=== PATIENT | female | born 1950 | race Caucasian/White ===

== ENCOUNTER 2017-11-09 12:12 | Outpatient (CLI) | payer MEDICARE, OTHER, SELFPAY ==
[2017-11-09 12:37] LABS: Abs Immature Grans 0.01 k/cumm (0.0-0.09); Absolute Basophil Count 0.02 k/cumm (0.0-0.2); Absolute Lymphocyte Count 0.92 k/cumm (1.2-3.4); Absolute Monocyte Count 0.91 k/cumm (0.11-0.7); Absolute Neutrophil Count 2.51 k/cumm (1.2-6.7); Basophils % 0.4; Eosinophils % 6.4; HCT 35.6 % (36.0-46.0); HGB 11.5 g/dL (12.0-15.5); Immature Grans % 0.2; Lymphocytes % 19.7; Mean Corp. HGB Concentration 32.3 g/dL (32.0-36.0); Mean Corpuscular Hemoglobin 29.6 pg (27.0-33.0); Mean Corpuscular Volume 91.8 fL (80-95); Mean Platelet Volume 12.6 fL (8.0-11.0); Monocytes % 19.5; Neutrophils % 53.8; RBC 3.88 m/cumm (4.00-5.20); RBC Distribution Width 15.2 % (11.7-14.6); White Blood Cell Count 4.67 k/cumm (4.4-10.8)
[2017-11-09 12:49] LABS: ALT 17 U/L (12-78); AST 12 U/L (15-37); Albumin 2.7 g/dL (3.4-5.0); Alkaline Phosphatase 53 U/L (46-116); Anion Gap 7.7 mmol/L (3-11); BUN 13 mg/dL (7-18); Bilirubin, Total 0.5 mg/dL (0.2-1.0); CO2 26.3 mmol/L (21.0-32.0); CREATININE 0.72 mg/dL (0.55-1.02); Calcium 8.3 mg/dL (8.5-10.1); Chloride 103 mmol/L (98-107); Glucose 92 mg/dL (70-100); Potassium 3.9 mmol/L (3.5-5.1); Sodium 137 mmol/L (136-145); Total Protein 8.3 g/dL (6.4-8.2)
[2017-11-09 13:10] LABS: Platelet Count 86 x1000/uL (130-400)
== END 2017-11-09 12:13 ==
PROVIDERS: PCP Nurse Practitioner Family; Visit Provider Internal Medicine
DX: C90.00 Multiple myeloma not having achieved remission (principal)
CPT/HCPCS: 36415; 80053; 85025

== ENCOUNTER 2017-11-16 12:22 | Outpatient (CLI) | payer MEDICARE, OTHER, SELFPAY ==
[2017-11-16 12:44] LABS: Abs Immature Grans 0.03 k/cumm (0.0-0.09); Absolute Basophil Count 0.05 k/cumm (0.0-0.2); Absolute Eosinophil Count 0.36 k/cumm (0.0-0.7); Absolute Lymphocyte Count 0.85 k/cumm (1.2-3.4); Absolute Neutrophil Count 3.33 k/cumm (1.2-6.7); Basophils % 0.9; Eosinophils % 6.4; HCT 36.5 % (36.0-46.0); Immature Grans % 0.5; Lymphocytes % 15.1; Mean Corp. HGB Concentration 32.9 g/dL (32.0-36.0); Mean Corpuscular Hemoglobin 29.9 pg (27.0-33.0); Mean Corpuscular Volume 90.8 fL (80-95); Mean Platelet Volume 12.1 fL (8.0-11.0); Monocytes % 17.8; Neutrophils % 59.3; Platelet Count 121 x1000/uL (130-400); RBC 4.02 m/cumm (4.00-5.20); RBC Distribution Width 15.6 % (11.7-14.6); White Blood Cell Count 5.62 k/cumm (4.4-10.8)
[2017-11-16 13:00] LABS: ALT 13 U/L (12-78); AST 10 U/L (15-37); Alkaline Phosphatase 44 U/L (46-116); Anion Gap 9.3 mmol/L (3-11); BUN 16 mg/dL (7-18); Bilirubin, Total 0.7 mg/dL (0.2-1.0); CO2 22.7 mmol/L (21.0-32.0); CREATININE 0.67 mg/dL (0.55-1.02); Calcium 8.7 mg/dL (8.5-10.1); Chloride 105 mmol/L (98-107); Glucose 89 mg/dL (70-100); Potassium 3.9 mmol/L (3.5-5.1); Sodium 137 mmol/L (136-145); Total Protein 8.4 g/dL (6.4-8.2)
== END 2017-11-16 12:23 ==
PROVIDERS: PCP Nurse Practitioner Family; Visit Provider Internal Medicine
DX: C90.00 Multiple myeloma not having achieved remission (principal)
CPT/HCPCS: 36415; 80053; 85025

== ENCOUNTER 2017-12-07 05:28 | Outpatient (CLI) | payer MEDICARE, OTHER, SELFPAY ==
[2017-12-07 14:12] LABS: Abs Immature Grans 0.01 k/cumm (0.0-0.09); Absolute Basophil Count 0.04 k/cumm (0.0-0.2); Absolute Eosinophil Count 0.59 k/cumm (0.0-0.7); Absolute Lymphocyte Count 0.84 k/cumm (1.2-3.4); Absolute Monocyte Count 1.29 k/cumm (0.11-0.7); Absolute Neutrophil Count 3.27 k/cumm (1.2-6.7); Basophils % 0.7; Eosinophils % 9.8; HCT 37.8 % (36.0-46.0); HGB 11.9 g/dL (12.0-15.5); Immature Grans % 0.2; Lymphocytes % 13.9; Mean Corp. HGB Concentration 31.5 g/dL (32.0-36.0); Mean Corpuscular Hemoglobin 29.5 pg (27.0-33.0); Mean Corpuscular Volume 93.6 fL (80-95); Mean Platelet Volume 11.3 fL (8.0-11.0); Monocytes % 21.4; RBC 4.04 m/cumm (4.00-5.20); RBC Distribution Width 14.8 % (11.7-14.6); White Blood Cell Count 6.04 k/cumm (4.4-10.8)
[2017-12-07 14:31] LABS: Diff Comment PLT Morph Reviewed; Platelet Count 88 x1000/uL (130-400); Polychromasia Present
[2017-12-07 14:47] LABS: ALT 17 U/L (12-78); AST 13 U/L (15-37); Albumin 2.9 g/dL (3.4-5.0); Alkaline Phosphatase 52 U/L (46-116); BUN 13 mg/dL (7-18); Bilirubin, Total 0.6 mg/dL (0.2-1.0); CREATININE 0.75 mg/dL (0.55-1.02); Calcium 8.7 mg/dL (8.5-10.1); Chloride 105 mmol/L (98-107); Glucose 90 mg/dL (70-100); Potassium 3.5 mmol/L (3.5-5.1); Sodium 136 mmol/L (136-145); Total Protein 7.9 g/dL (6.4-8.2)
== END 2017-12-07 05:48 ==
PROVIDERS: PCP Nurse Practitioner Family; Visit Provider Internal Medicine
DX: C90.00 Multiple myeloma not having achieved remission (principal)
CPT/HCPCS: 36415; 80053; 85025

== ENCOUNTER 2017-12-14 13:54 | Outpatient (CLI) | payer MEDICARE, OTHER, SELFPAY ==
[2017-12-14 14:23] LABS: Abs Immature Grans 0.04 k/cumm (0.0-0.09); Absolute Basophil Count 0.03 k/cumm (0.0-0.2); Absolute Eosinophil Count 0.56 k/cumm (0.0-0.7); Absolute Lymphocyte Count 0.75 k/cumm (1.2-3.4); Absolute Monocyte Count 1.09 k/cumm (0.11-0.7); Absolute Neutrophil Count 3.53 k/cumm (1.2-6.7); Basophils % 0.5; Eosinophils % 9.3; HCT 36.3 % (36.0-46.0); HGB 11.4 g/dL (12.0-15.5); Immature Grans % 0.7; Lymphocytes % 12.5; Mean Corp. HGB Concentration 31.4 g/dL (32.0-36.0); Mean Corpuscular Hemoglobin 29.5 pg (27.0-33.0); Mean Platelet Volume 11.8 fL (8.0-11.0); Monocytes % 18.2; Neutrophils % 58.8; Platelet Count 117 x1000/uL (130-400); RBC 3.86 m/cumm (4.00-5.20); RBC Distribution Width 15.1 % (11.7-14.6)
[2017-12-14 15:01] LABS: ALT 19 U/L (12-78); AST 15 U/L (15-37); Albumin 2.8 g/dL (3.4-5.0); Alkaline Phosphatase 66 U/L (46-116); Anion Gap 4.7 mmol/L (3-11); BUN 13 mg/dL (7-18); Bilirubin, Total 0.6 mg/dL (0.2-1.0); CO2 27.3 mmol/L (21.0-32.0); CREATININE 0.71 mg/dL (0.55-1.02); Calcium 8.1 mg/dL (8.5-10.1); Chloride 106 mmol/L (98-107); Glucose 98 mg/dL (70-100); Potassium 3.9 mmol/L (3.5-5.1); Sodium 138 mmol/L (136-145)
== END 2017-12-14 14:14 ==
PROVIDERS: PCP Nurse Practitioner Family; Visit Provider Internal Medicine
DX: C90.00 Multiple myeloma not having achieved remission (principal)
CPT/HCPCS: 36415; 80053; 85025

== ENCOUNTER 2018-01-04 12:42 | Outpatient (CLI) | payer MEDICARE, OTHER, SELFPAY ==
[2018-01-04 13:04] LABS: Abs Immature Grans 0.02 k/cumm (0.0-0.09); Absolute Basophil Count 0.05 k/cumm (0.0-0.2); Absolute Eosinophil Count 0.38 k/cumm (0.0-0.7); Absolute Lymphocyte Count 0.82 k/cumm (1.2-3.4); Absolute Monocyte Count 0.92 k/cumm (0.11-0.7); Basophils % 1.1; Eosinophils % 8.3; HCT 37.3 % (36.0-46.0); HGB 11.9 g/dL (12.0-15.5); Immature Grans % 0.4; Lymphocytes % 17.9; Mean Corp. HGB Concentration 31.9 g/dL (32.0-36.0); Mean Corpuscular Hemoglobin 30.1 pg (27.0-33.0); Mean Corpuscular Volume 94.4 fL (80-95); Mean Platelet Volume 12.7 fL (8.0-11.0); Neutrophils % 52.3; RBC 3.95 m/cumm (4.00-5.20); RBC Distribution Width 15.5 % (11.7-14.6); White Blood Cell Count 4.59 k/cumm (4.4-10.8)
[2018-01-04 13:24] LABS: ALT 17 U/L (12-78); AST 13 U/L (15-37); Albumin 2.9 g/dL (3.4-5.0); Alkaline Phosphatase 47 U/L (46-116); Anion Gap 6.1 mmol/L (3-11); BUN 18 mg/dL (7-18); Bilirubin, Total 0.8 mg/dL (0.2-1.0); CO2 25.9 mmol/L (21.0-32.0); CREATININE 0.61 mg/dL (0.55-1.02); Calcium 8.4 mg/dL (8.5-10.1); Chloride 107 mmol/L (98-107); Glucose 92 mg/dL (70-100); Potassium 3.9 mmol/L (3.5-5.1); Sodium 139 mmol/L (136-145); Total Protein 7.3 g/dL (6.4-8.2)
[2018-01-04 13:34] LABS: Diff Comment PLT Morph Reviewed; Platelet Count 79 x1000/uL (130-400); RBC Morphology Normal
== END 2018-01-04 13:02 ==
PROVIDERS: PCP Nurse Practitioner Family; Visit Provider Internal Medicine
DX: C90.00 Multiple myeloma not having achieved remission (principal)
CPT/HCPCS: 36415; 80053; 85025

== ENCOUNTER 2018-01-11 12:45 | Outpatient (CLI) | payer MEDICARE, OTHER, SELFPAY ==
[2018-01-11 13:06] LABS: Abs Immature Grans 0.03 k/cumm (0.0-0.09); Absolute Basophil Count 0.03 k/cumm (0.0-0.2); Absolute Lymphocyte Count 0.84 k/cumm (1.2-3.4); Absolute Monocyte Count 1.01 k/cumm (0.11-0.7); Absolute Neutrophil Count 4.85 k/cumm (1.2-6.7); Basophils % 0.4; Eosinophils % 5.6; HCT 38.2 % (36.0-46.0); HGB 12.1 g/dL (12.0-15.5); Immature Grans % 0.4; Lymphocytes % 11.7; Mean Corp. HGB Concentration 31.7 g/dL (32.0-36.0); Mean Corpuscular Hemoglobin 30.2 pg (27.0-33.0); Mean Corpuscular Volume 95.3 fL (80-95); Mean Platelet Volume 11.5 fL (8.0-11.0); Monocytes % 14.1; Neutrophils % 67.8; Platelet Count 102 x1000/uL (130-400); RBC 4.01 m/cumm (4.00-5.20); RBC Distribution Width 15.8 % (11.7-14.6); White Blood Cell Count 7.16 k/cumm (4.4-10.8)
[2018-01-11 13:23] LABS: ALT 20 U/L (12-78); AST 11 U/L (15-37); Albumin 2.8 g/dL (3.4-5.0); Alkaline Phosphatase 50 U/L (46-116); Anion Gap 7.8 mmol/L (3-11); BUN 12 mg/dL (7-18); CO2 26.2 mmol/L (21.0-32.0); CREATININE 0.59 mg/dL (0.55-1.02); Calcium 8.3 mg/dL (8.5-10.1); Chloride 106 mmol/L (98-107); Glucose 115 mg/dL (70-100); Potassium 3.7 mmol/L (3.5-5.1); Sodium 140 mmol/L (136-145); Total Protein 7.4 g/dL (6.4-8.2)
== END 2018-01-11 13:05 ==
PROVIDERS: PCP Nurse Practitioner Family; Visit Provider Internal Medicine
DX: C90.00 Multiple myeloma not having achieved remission (principal)
CPT/HCPCS: 36415; 80053; 85025

== ENCOUNTER 2018-02-01 12:56 | Outpatient (CLI) | payer MEDICARE, OTHER, SELFPAY ==
[2018-02-01 13:45] LABS: Abs Immature Grans 0.03 k/cumm (0.0-0.09); Absolute Basophil Count 0.03 k/cumm (0.0-0.2); Absolute Eosinophil Count 0.36 k/cumm (0.0-0.7); Absolute Lymphocyte Count 0.69 k/cumm (1.2-3.4); Absolute Monocyte Count 0.68 k/cumm (0.11-0.7); Absolute Neutrophil Count 3.61 k/cumm (1.2-6.7); Basophils % 0.6; Eosinophils % 6.7; HCT 41.1 % (36.0-46.0); Immature Grans % 0.6; Lymphocytes % 12.8; Mean Corp. HGB Concentration 31.6 g/dL (32.0-36.0); Mean Corpuscular Hemoglobin 29.6 pg (27.0-33.0); Mean Corpuscular Volume 93.6 fL (80-95); Mean Platelet Volume 11.9 fL (8.0-11.0); Monocytes % 12.6; Neutrophils % 66.7; RBC 4.39 m/cumm (4.00-5.20); RBC Distribution Width 15.5 % (11.7-14.6)
[2018-02-01 13:47] LABS: ALT 23 U/L (12-78); AST 13 U/L (15-37); Albumin 2.9 g/dL (3.4-5.0); Alkaline Phosphatase 55 U/L (46-116); Anion Gap 7.8 mmol/L (3-11); BUN 18 mg/dL (7-18); Bilirubin, Total 0.7 mg/dL (0.2-1.0); CO2 26.2 mmol/L (21.0-32.0); CREATININE 0.61 mg/dL (0.55-1.02); Calcium 8.6 mg/dL (8.5-10.1); Chloride 103 mmol/L (98-107); Glucose 108 mg/dL (70-100); Potassium 3.5 mmol/L (3.5-5.1); Sodium 137 mmol/L (136-145); Total Protein 8.3 g/dL (6.4-8.2)
[2018-02-01 14:08] LABS: Diff Comment PLT Morph Reviewed; Platelet Count 87 x1000/uL (130-400); RBC Morphology Normal
== END 2018-02-01 13:16 ==
PROVIDERS: PCP Nurse Practitioner Family; Visit Provider Internal Medicine
DX: C90.00 Multiple myeloma not having achieved remission (principal)
CPT/HCPCS: 36415; 80053; 85025

== ENCOUNTER 2018-02-08 12:29 | Outpatient (CLI) | payer MEDICARE, OTHER, SELFPAY ==
[2018-02-08 12:52] LABS: Abs Immature Grans 0.03 k/cumm (0.0-0.09); Absolute Basophil Count 0.02 k/cumm (0.0-0.2); Absolute Eosinophil Count 0.32 k/cumm (0.0-0.7); Absolute Lymphocyte Count 0.72 k/cumm (1.2-3.4); Absolute Monocyte Count 1.01 k/cumm (0.11-0.7); Absolute Neutrophil Count 5.04 k/cumm (1.2-6.7); Basophils % 0.3; Eosinophils % 4.5; HCT 38.1 % (36.0-46.0); HGB 12.2 g/dL (12.0-15.5); Immature Grans % 0.4; Lymphocytes % 10.1; Mean Corpuscular Hemoglobin 30.3 pg (27.0-33.0); Mean Corpuscular Volume 94.8 fL (80-95); Monocytes % 14.1; Neutrophils % 70.6; Platelet Count 104 x1000/uL (130-400); RBC 4.02 m/cumm (4.00-5.20); RBC Distribution Width 15.5 % (11.7-14.6); White Blood Cell Count 7.14 k/cumm (4.4-10.8)
[2018-02-08 13:19] LABS: ALT 22 U/L (12-78); AST 12 U/L (15-37); Albumin 2.7 g/dL (3.4-5.0); Alkaline Phosphatase 50 U/L (46-116); Anion Gap 7.3 mmol/L (3-11); BUN 19 mg/dL (7-18); Bilirubin, Total 0.6 mg/dL (0.2-1.0); CO2 25.7 mmol/L (21.0-32.0); CREATININE 0.68 mg/dL (0.55-1.02); Calcium 8.9 mg/dL (8.5-10.1); Chloride 102 mmol/L (98-107); Glucose 96 mg/dL (70-100); Potassium 3.7 mmol/L (3.5-5.1); Sodium 135 mmol/L (136-145); Total Protein 7.9 g/dL (6.4-8.2)
== END 2018-02-08 12:49 ==
PROVIDERS: PCP Internal Medicine; Visit Provider Internal Medicine
DX: C90.00 Multiple myeloma not having achieved remission (principal)
CPT/HCPCS: 36415; 80053; 85025

== ENCOUNTER 2018-03-08 07:41 | Outpatient (CLI) | payer MEDICARE, OTHER, SELFPAY ==
[2018-03-08 08:22] LABS: Abs Immature Grans 0.04 k/cumm (0.0-0.09); Absolute Basophil Count 0.03 k/cumm (0.0-0.2); Absolute Eosinophil Count 0.38 k/cumm (0.0-0.7); Absolute Lymphocyte Count 0.83 k/cumm (1.2-3.4); Absolute Monocyte Count 0.82 k/cumm (0.11-0.7); Basophils % 0.6; HCT 35.8 % (36.0-46.0); HGB 11.5 g/dL (12.0-15.5); Immature Grans % 0.7; Lymphocytes % 15.4; Mean Corp. HGB Concentration 32.1 g/dL (32.0-36.0); Mean Corpuscular Hemoglobin 30.9 pg (27.0-33.0); Mean Corpuscular Volume 96.2 fL (80-95); Mean Platelet Volume 12.3 fL (8.0-11.0); Monocytes % 15.2; Neutrophils % 61.1; RBC 3.72 m/cumm (4.00-5.20); RBC Distribution Width 15.5 % (11.7-14.6)
[2018-03-08 08:51] LABS: Diff Comment PLT Morph Reviewed; Platelet Count 68 x1000/uL (130-400); RBC Morphology Normal
[2018-03-08 09:43] LABS: ALT 19 U/L (12-78); AST 17 U/L (15-37); Albumin 2.6 g/dL (3.4-5.0); Alkaline Phosphatase 53 U/L (46-116); BUN 15 mg/dL (7-18); Bilirubin, Total 0.5 mg/dL (0.2-1.0); CREATININE 0.63 mg/dL (0.55-1.02); Calcium 8.5 mg/dL (8.5-10.1); Chloride 104 mmol/L (98-107); Glucose 83 mg/dL (70-100); Potassium 4.2 mmol/L (3.5-5.1); Sodium 137 mmol/L (136-145); Total Protein 8.9 g/dL (6.4-8.2)
== END 2018-03-08 08:01 ==
PROVIDERS: Nurse Practitioner Adult Health; PCP Internal Medicine; Visit Provider Internal Medicine
DX: C90.00 Multiple myeloma not having achieved remission (principal)
CPT/HCPCS: 36415; 80053; 85025

== ENCOUNTER 2018-03-15 09:30 | Outpatient (CLI) | payer MEDICARE, OTHER, SELFPAY ==
[2018-03-15 09:51] LABS: Abs Immature Grans 0.06 k/cumm (0.0-0.09); Absolute Basophil Count 0.02 k/cumm (0.0-0.2); Absolute Eosinophil Count 0.36 k/cumm (0.0-0.7); Absolute Lymphocyte Count 0.75 k/cumm (1.2-3.4); Absolute Monocyte Count 0.96 k/cumm (0.11-0.7); Absolute Neutrophil Count 4.48 k/cumm (1.2-6.7); Basophils % 0.3; Eosinophils % 5.4; HCT 36.4 % (36.0-46.0); HGB 11.5 g/dL (12.0-15.5); Immature Grans % 0.9; Lymphocytes % 11.3; Mean Corp. HGB Concentration 31.6 g/dL (32.0-36.0); Mean Corpuscular Hemoglobin 30.8 pg (27.0-33.0); Mean Corpuscular Volume 97.6 fL (80-95); Monocytes % 14.5; Neutrophils % 67.6; Platelet Count 193 x1000/uL (130-400); RBC 3.73 m/cumm (4.00-5.20); RBC Distribution Width 15.7 % (11.7-14.6); White Blood Cell Count 6.63 k/cumm (4.4-10.8)
[2018-03-15 10:03] LABS: ALT 16 U/L (12-78); AST 11 U/L (15-37); Albumin 2.5 g/dL (3.4-5.0); Alkaline Phosphatase 52 U/L (46-116); Anion Gap 3.9 mmol/L (3-11); BUN 19 mg/dL (7-18); Bilirubin, Total 0.5 mg/dL (0.2-1.0); CO2 27.1 mmol/L (21.0-32.0); Calcium 8.3 mg/dL (8.5-10.1); Chloride 104 mmol/L (98-107); Glucose 92 mg/dL (70-100); Potassium 3.8 mmol/L (3.5-5.1); Sodium 135 mmol/L (136-145)
== END 2018-03-15 09:50 ==
PROVIDERS: PCP Internal Medicine; Visit Provider Nurse Practitioner Adult Health
DX: C90.00 Multiple myeloma not having achieved remission (principal)
CPT/HCPCS: 36415; 80053; 85025

== ENCOUNTER 2018-04-12 11:38 | Outpatient (CLI) | payer MEDICARE, OTHER, SELFPAY ==
[2018-04-12 12:26] LABS: Abs Immature Grans 0.09 k/cumm (0.0-0.09); Absolute Basophil Count 0.02 k/cumm (0.0-0.2); Absolute Eosinophil Count 0.26 k/cumm (0.0-0.7); Absolute Lymphocyte Count 0.81 k/cumm (1.2-3.4); Absolute Monocyte Count 0.71 k/cumm (0.11-0.7); Absolute Neutrophil Count 4.14 k/cumm (1.2-6.7); Basophils % 0.3; Eosinophils % 4.3; HCT 32.3 % (36.0-46.0); HGB 10.1 g/dL (12.0-15.5); Immature Grans % 1.5; Lymphocytes % 13.4; Mean Corp. HGB Concentration 31.3 g/dL (32.0-36.0); Mean Corpuscular Volume 95.8 fL (80-95); Mean Platelet Volume 11.8 fL (8.0-11.0); Monocytes % 11.8; Neutrophils % 68.7; Platelet Count 104 x1000/uL (130-400); RBC 3.37 m/cumm (4.00-5.20); RBC Distribution Width 15.9 % (11.7-14.6); White Blood Cell Count 6.03 k/cumm (4.4-10.8)
[2018-04-12 12:38] LABS: ALT 25 U/L (12-78); AST 12 U/L (15-37); Alkaline Phosphatase 47 U/L (46-116); Anion Gap 4.7 mmol/L (3-11); BUN 12 mg/dL (7-18); Bilirubin, Total 0.4 mg/dL (0.2-1.0); CO2 26.3 mmol/L (21.0-32.0); CREATININE 0.78 mg/dL (0.55-1.02); Calcium 8.4 mg/dL (8.5-10.1); Chloride 103 mmol/L (98-107); Glucose 118 mg/dL (70-100); Potassium 3.3 mmol/L (3.5-5.1); Sodium 134 mmol/L (136-145); Total Protein 10.2 g/dL (6.4-8.2)
== END 2018-04-12 11:58 ==
PROVIDERS: Nurse Practitioner Adult Health; PCP Internal Medicine; Visit Provider Internal Medicine
DX: C90.00 Multiple myeloma not having achieved remission (principal)
CPT/HCPCS: 36415; 80053; 85025

== ENCOUNTER 2018-05-03 07:07 | Outpatient (CLI) | payer MEDICARE, OTHER, SELFPAY ==
[2018-05-03 07:37] LABS: Abs Immature Grans 0.01 k/cumm (0.0-0.09); Absolute Eosinophil Count 0.22 k/cumm (0.0-0.7); Absolute Lymphocyte Count 0.44 k/cumm (1.2-3.4); Absolute Monocyte Count 0.56 k/cumm (0.11-0.7); Eosinophils % 5.3; HCT 31.5 % (36.0-46.0); Immature Grans % 0.2; Lymphocytes % 10.7; Mean Corp. HGB Concentration 31.7 g/dL (32.0-36.0); Mean Corpuscular Hemoglobin 29.9 pg (27.0-33.0); Mean Platelet Volume 12.7 fL (8.0-11.0); Monocytes % 13.6; Neutrophils % 70.2; RBC 3.35 m/cumm (4.00-5.20); RBC Distribution Width 16.2 % (11.7-14.6); White Blood Cell Count 4.13 k/cumm (4.4-10.8)
[2018-05-03 07:50] LABS: ALT 33 U/L (12-78); AST 12 U/L (15-37); Albumin 2.1 g/dL (3.4-5.0); Alkaline Phosphatase 54 U/L (46-116); Anion Gap 2.2 mmol/L (3-11); BUN 16 mg/dL (7-18); Bilirubin, Total 0.3 mg/dL (0.2-1.0); CO2 26.8 mmol/L (21.0-32.0); CREATININE 0.69 mg/dL (0.55-1.02); Calcium 8.2 mg/dL (8.5-10.1); Chloride 106 mmol/L (98-107); Glucose 87 mg/dL (70-100); Potassium 3.5 mmol/L (3.5-5.1); Sodium 135 mmol/L (136-145)
[2018-05-03 07:54] LABS: Platelet Count 49 x1000/uL (130-400)
[2018-05-03 07:55] LABS: Diff Comment RBC Morph Reviewed; Polychromasia Present
== END 2018-05-03 07:27 ==
PROVIDERS: Nurse Practitioner Adult Health; PCP Internal Medicine; Visit Provider Internal Medicine
DX: C90.00 Multiple myeloma not having achieved remission (principal)
CPT/HCPCS: 36415; 80053; 85025

== ENCOUNTER 2018-05-10 07:28 | Outpatient (CLI) | payer MEDICARE, OTHER, SELFPAY ==
[2018-05-10 07:55] LABS: Abs Immature Grans 0.01 k/cumm (0.0-0.09); Absolute Basophil Count 0.01 k/cumm (0.0-0.2); Absolute Eosinophil Count 0.17 k/cumm (0.0-0.7); Absolute Lymphocyte Count 0.63 k/cumm (1.2-3.4); Absolute Monocyte Count 0.36 k/cumm (0.11-0.7); Absolute Neutrophil Count 2.73 k/cumm (1.2-6.7); Basophils % 0.3; Eosinophils % 4.3; HCT 33.8 % (36.0-46.0); HGB 10.6 g/dL (12.0-15.5); Immature Grans % 0.3; Lymphocytes % 16.1; Mean Corp. HGB Concentration 31.4 g/dL (32.0-36.0); Mean Corpuscular Hemoglobin 30.1 pg (27.0-33.0); Mean Platelet Volume 10.5 fL (8.0-11.0); Monocytes % 9.2; Neutrophils % 69.8; RBC 3.52 m/cumm (4.00-5.20); RBC Distribution Width 16.6 % (11.7-14.6); White Blood Cell Count 3.91 k/cumm (4.4-10.8)
[2018-05-10 08:02] LABS: ALT 18 U/L (12-78); AST 11 U/L (15-37); Albumin 2.1 g/dL (3.4-5.0); Alkaline Phosphatase 56 U/L (46-116); Anion Gap 2.9 mmol/L (3-11); BUN 15 mg/dL (7-18); Bilirubin, Total 0.3 mg/dL (0.2-1.0); CO2 27.1 mmol/L (21.0-32.0); CREATININE 0.84 mg/dL (0.55-1.02); Calcium 8.1 mg/dL (8.5-10.1); Chloride 105 mmol/L (98-107); Glucose 153 mg/dL (70-100); Potassium 3.4 mmol/L (3.5-5.1); Sodium 135 mmol/L (136-145)
[2018-05-10 08:17] LABS: Platelet Count 185 x1000/uL (130-400)
[2018-05-10 08:18] LABS: Anisocytosis 1+; Diff Comment PLT Morph Reviewed; Polychromasia Present
== END 2018-05-10 07:48 ==
PROVIDERS: Nurse Practitioner Adult Health; PCP Internal Medicine; Visit Provider Internal Medicine
DX: C90.00 Multiple myeloma not having achieved remission (principal)
CPT/HCPCS: 36415; 80053; 85025

== ENCOUNTER 2018-05-24 08:47 | Outpatient (CLI) | payer MEDICARE, OTHER, SELFPAY ==
[2018-05-24 09:05] LABS: Abs Immature Grans 0.01 k/cumm (0.0-0.09); Absolute Eosinophil Count 0.11 k/cumm (0.0-0.7); Absolute Lymphocyte Count 0.92 k/cumm (1.2-3.4); Absolute Monocyte Count 0.67 k/cumm (0.11-0.7); Absolute Neutrophil Count 2.28 k/cumm (1.2-6.7); Eosinophils % 2.8; HCT 35.3 % (36.0-46.0); HGB 11.1 g/dL (12.0-15.5); Immature Grans % 0.3; Mean Corp. HGB Concentration 31.4 g/dL (32.0-36.0); Mean Corpuscular Volume 95.4 fL (80-95); Mean Platelet Volume 10.1 fL (8.0-11.0); Monocytes % 16.8; Neutrophils % 57.1; Platelet Count 196 x1000/uL (130-400); RBC Distribution Width 17.2 % (11.7-14.6)
[2018-05-24 09:18] LABS: ALT 13 U/L (12-78); AST 11 U/L (15-37); Albumin 2.3 g/dL (3.4-5.0); Alkaline Phosphatase 60 U/L (46-116); Anion Gap 2.7 mmol/L (3-11); BUN 11 mg/dL (7-18); Bilirubin, Total 0.4 mg/dL (0.2-1.0); CO2 28.3 mmol/L (21.0-32.0); CREATININE 0.62 mg/dL (0.55-1.02); Calcium 7.6 mg/dL (8.5-10.1); Chloride 106 mmol/L (98-107); Glucose 114 mg/dL (70-100); Potassium 3.6 mmol/L (3.5-5.1); Sodium 137 mmol/L (136-145); Total Protein 8.8 g/dL (6.4-8.2)
== END 2018-05-24 09:07 ==
PROVIDERS: Nurse Practitioner Adult Health; PCP Internal Medicine; Visit Provider Internal Medicine
DX: C90.00 Multiple myeloma not having achieved remission (principal)
CPT/HCPCS: 80053; 85025

== ENCOUNTER 2018-06-06 09:24 | Outpatient (CLI) | payer MEDICARE, OTHER, SELFPAY ==
[2018-06-06 09:52] LABS: Abs Immature Grans 0.01 k/cumm (0.0-0.09); Absolute Eosinophil Count 0.16 k/cumm (0.0-0.7); Absolute Lymphocyte Count 0.81 k/cumm (1.2-3.4); Absolute Monocyte Count 0.93 k/cumm (0.11-0.7); Absolute Neutrophil Count 3.57 k/cumm (1.2-6.7); Eosinophils % 2.9; HCT 36.4 % (36.0-46.0); HGB 11.7 g/dL (12.0-15.5); Immature Grans % 0.2; Lymphocytes % 14.8; Mean Corp. HGB Concentration 32.1 g/dL (32.0-36.0); Mean Corpuscular Hemoglobin 30.2 pg (27.0-33.0); Mean Corpuscular Volume 94.1 fL (80-95); Mean Platelet Volume 12.5 fL (8.0-11.0); Neutrophils % 65.1; RBC 3.87 m/cumm (4.00-5.20); RBC Distribution Width 16.6 % (11.7-14.6); White Blood Cell Count 5.48 k/cumm (4.4-10.8)
[2018-06-06 10:06] LABS: ALT 12 U/L (12-78); AST 10 U/L (15-37); Albumin 2.5 g/dL (3.4-5.0); Alkaline Phosphatase 57 U/L (46-116); Anion Gap 6.7 mmol/L (3-11); BUN 17 mg/dL (7-18); Bilirubin, Total 0.5 mg/dL (0.2-1.0); CO2 25.3 mmol/L (21.0-32.0); Calcium 8.5 mg/dL (8.5-10.1); Chloride 106 mmol/L (98-107); Glucose 97 mg/dL (70-100); Potassium 3.6 mmol/L (3.5-5.1); Sodium 138 mmol/L (136-145); Total Protein 8.7 g/dL (6.4-8.2)
[2018-06-06 10:25] LABS: Platelet Count 64 x1000/uL (130-400)
== END 2018-06-06 09:44 ==
PROVIDERS: PCP Internal Medicine; Visit Provider Internal Medicine
DX: C90.00 Multiple myeloma not having achieved remission (principal)
CPT/HCPCS: 36415; 80053; 85025

== ENCOUNTER 2018-06-14 09:15 | Outpatient (CLI) | payer MEDICARE, OTHER, SELFPAY ==
[2018-06-14 09:32] LABS: Absolute Eosinophil Count 0.16 k/cumm (0.0-0.7); Absolute Lymphocyte Count 0.54 k/cumm (1.2-3.4); Absolute Monocyte Count 0.75 k/cumm (0.11-0.7); Absolute Neutrophil Count 2.16 k/cumm (1.2-6.7); Eosinophils % 4.4; HCT 34.5 % (36.0-46.0); HGB 11.1 g/dL (12.0-15.5); Mean Corp. HGB Concentration 32.2 g/dL (32.0-36.0); Mean Corpuscular Hemoglobin 30.5 pg (27.0-33.0); Mean Corpuscular Volume 94.8 fL (80-95); Mean Platelet Volume 11.2 fL (8.0-11.0); Monocytes % 20.8; Neutrophils % 59.8; Platelet Count 130 x1000/uL (130-400); RBC 3.64 m/cumm (4.00-5.20); RBC Distribution Width 16.5 % (11.7-14.6); White Blood Cell Count 3.61 k/cumm (4.4-10.8)
[2018-06-14 09:45] LABS: ALT 13 U/L (12-78); AST 12 U/L (15-37); Albumin 2.5 g/dL (3.4-5.0); Alkaline Phosphatase 56 U/L (46-116); Anion Gap 4.1 mmol/L (3-11); BUN 12 mg/dL (7-18); Bilirubin, Total 0.5 mg/dL (0.2-1.0); CO2 25.9 mmol/L (21.0-32.0); CREATININE 0.73 mg/dL (0.55-1.02); Calcium 8.1 mg/dL (8.5-10.1); Chloride 106 mmol/L (98-107); Glucose 114 mg/dL (70-100); Potassium 3.5 mmol/L (3.5-5.1); Sodium 136 mmol/L (136-145); Total Protein 8.6 g/dL (6.4-8.2)
== END 2018-06-14 09:35 ==
PROVIDERS: PCP Internal Medicine; Visit Provider Nurse Practitioner Adult Health
DX: C90.00 Multiple myeloma not having achieved remission (principal)
CPT/HCPCS: 36415; 80053; 85025

== ENCOUNTER 2018-06-21 07:59 | Outpatient (CLI) | payer MEDICARE, OTHER, SELFPAY ==
[2018-06-21 08:19] LABS: Abs Immature Grans 0.01 k/cumm (0.0-0.09); Absolute Eosinophil Count 0.13 k/cumm (0.0-0.7); Absolute Lymphocyte Count 0.49 k/cumm (1.2-3.4); Absolute Monocyte Count 1.08 k/cumm (0.11-0.7); Absolute Neutrophil Count 2.21 k/cumm (1.2-6.7); Eosinophils % 3.3; HCT 34.6 % (36.0-46.0); HGB 11.1 g/dL (12.0-15.5); Immature Grans % 0.3; Lymphocytes % 12.5; Mean Corp. HGB Concentration 32.1 g/dL (32.0-36.0); Mean Corpuscular Hemoglobin 30.3 pg (27.0-33.0); Mean Corpuscular Volume 94.5 fL (80-95); Mean Platelet Volume 11.3 fL (8.0-11.0); Monocytes % 27.6; Neutrophils % 56.3; RBC 3.66 m/cumm (4.00-5.20); RBC Distribution Width 16.8 % (11.7-14.6); White Blood Cell Count 3.92 k/cumm (4.4-10.8)
[2018-06-21 08:31] LABS: ALT 14 U/L (12-78); AST 6 U/L (15-37); Albumin 2.4 g/dL (3.4-5.0); Alkaline Phosphatase 61 U/L (46-116); Anion Gap 4.2 mmol/L (3-11); BUN 15 mg/dL (7-18); Bilirubin, Total 0.4 mg/dL (0.2-1.0); CO2 25.8 mmol/L (21.0-32.0); CREATININE 0.74 mg/dL (0.55-1.02); Calcium 8.4 mg/dL (8.5-10.1); Chloride 106 mmol/L (98-107); Glucose 101 mg/dL (70-100); Potassium 3.8 mmol/L (3.5-5.1); Sodium 136 mmol/L (136-145); Total Protein 8.6 g/dL (6.4-8.2)
[2018-06-21 08:36] LABS: Diff Comment PLT Morph Reviewed; Platelet Count 100 x1000/uL (130-400); RBC Morphology Normal
== END 2018-06-21 08:19 ==
PROVIDERS: PCP Internal Medicine; Visit Provider Internal Medicine
DX: C90.00 Multiple myeloma not having achieved remission (principal)
CPT/HCPCS: 36415; 80053; 85025

== ENCOUNTER 2018-07-05 13:07 | Outpatient (CLI) | payer MEDICARE, OTHER, SELFPAY ==
[2018-07-05 13:45] LABS: Abs Immature Grans 0.01 k/cumm (0.0-0.09); Absolute Eosinophil Count 0.16 k/cumm (0.0-0.7); Absolute Lymphocyte Count 0.73 k/cumm (1.2-3.4); Absolute Monocyte Count 0.66 k/cumm (0.11-0.7); Absolute Neutrophil Count 3.43 k/cumm (1.2-6.7); Eosinophils % 3.2; HCT 36.4 % (36.0-46.0); HGB 11.3 g/dL (12.0-15.5); Immature Grans % 0.2; Lymphocytes % 14.6; Mean Corpuscular Hemoglobin 29.7 pg (27.0-33.0); Mean Corpuscular Volume 95.5 fL (80-95); Mean Platelet Volume 12.2 fL (8.0-11.0); Monocytes % 13.2; Neutrophils % 68.8; RBC 3.81 m/cumm (4.00-5.20); RBC Distribution Width 16.5 % (11.7-14.6); White Blood Cell Count 4.99 k/cumm (4.4-10.8)
[2018-07-05 13:48] LABS: ALT 15 U/L (12-78); AST 11 U/L (15-37); Albumin 2.5 g/dL (3.4-5.0); Alkaline Phosphatase 66 U/L (46-116); Anion Gap 5.3 mmol/L (3-11); BUN 17 mg/dL (7-18); Bilirubin, Total 0.5 mg/dL (0.2-1.0); CO2 24.7 mmol/L (21.0-32.0); CREATININE 0.68 mg/dL (0.55-1.02); Chloride 104 mmol/L (98-107); Glucose 96 mg/dL (70-100); Potassium 3.8 mmol/L (3.5-5.1); Sodium 134 mmol/L (136-145); Total Protein 9.1 g/dL (6.4-8.2)
[2018-07-05 14:07] LABS: Platelet Count 90 x1000/uL (130-400)
[2018-07-05 14:08] LABS: Diff Comment PLT Morph Reviewed; RBC Morphology Normal
== END 2018-07-05 13:27 ==
PROVIDERS: Nurse Practitioner Adult Health; PCP Internal Medicine; Visit Provider Internal Medicine
DX: C90.00 Multiple myeloma not having achieved remission (principal)
CPT/HCPCS: 36415; 80053; 85025

== ENCOUNTER 2018-07-12 07:40 | Outpatient (CLI) | payer MEDICARE, OTHER, SELFPAY ==
[2018-07-12 07:56] LABS: Abs Immature Grans 0.01 k/cumm (0.0-0.09); Absolute Basophil Count 0.01 k/cumm (0.0-0.2); Absolute Lymphocyte Count 0.51 k/cumm (1.2-3.4); Basophils % 0.2; Eosinophils % 4.1; HCT 34.4 % (36.0-46.0); HGB 10.9 g/dL (12.0-15.5); Immature Grans % 0.2; Lymphocytes % 10.3; Mean Corp. HGB Concentration 31.7 g/dL (32.0-36.0); Mean Corpuscular Hemoglobin 30.6 pg (27.0-33.0); Mean Corpuscular Volume 96.6 fL (80-95); Monocytes % 18.3; Neutrophils % 66.9; RBC 3.56 m/cumm (4.00-5.20); RBC Distribution Width 16.3 % (11.7-14.6); White Blood Cell Count 4.93 k/cumm (4.4-10.8)
[2018-07-12 08:20] LABS: ALT 14 U/L (12-78); AST 10 U/L (15-37); Albumin 2.3 g/dL (3.4-5.0); Alkaline Phosphatase 61 U/L (46-116); Anion Gap 6.2 mmol/L (3-11); BUN 14 mg/dL (7-18); Bilirubin, Total 0.4 mg/dL (0.2-1.0); CO2 25.8 mmol/L (21.0-32.0); CREATININE 0.79 mg/dL (0.55-1.02); Calcium 8.4 mg/dL (8.5-10.1); Chloride 105 mmol/L (98-107); Glucose 111 mg/dL (70-100); Potassium 3.6 mmol/L (3.5-5.1); Sodium 137 mmol/L (136-145); Total Protein 8.6 g/dL (6.4-8.2)
[2018-07-12 08:30] LABS: Platelet Count 86 x1000/uL (130-400)
== END 2018-07-12 08:00 ==
PROVIDERS: PCP Internal Medicine; Visit Provider Internal Medicine
DX: C90.00 Multiple myeloma not having achieved remission (principal)
CPT/HCPCS: 36415; 80053; 85025

== ENCOUNTER 2018-08-02 09:01 | Outpatient (CLI) | payer MEDICARE, OTHER, SELFPAY ==
[2018-08-02 09:25] LABS: Abs Immature Grans 0.01 k/cumm (0.0-0.09); Absolute Eosinophil Count 0.12 k/cumm (0.0-0.7); Absolute Lymphocyte Count 0.96 k/cumm (1.2-3.4); Absolute Monocyte Count 0.77 k/cumm (0.11-0.7); Absolute Neutrophil Count 2.18 k/cumm (1.2-6.7); HCT 35.4 % (36.0-46.0); Immature Grans % 0.2; Lymphocytes % 23.8; Mean Corp. HGB Concentration 31.1 g/dL (32.0-36.0); Mean Corpuscular Volume 96.5 fL (80-95); Mean Platelet Volume 12.4 fL (8.0-11.0); Monocytes % 19.1; Neutrophils % 53.9; RBC 3.67 m/cumm (4.00-5.20); RBC Distribution Width 16.9 % (11.7-14.6); White Blood Cell Count 4.04 k/cumm (4.4-10.8)
[2018-08-02 09:37] LABS: ALT 17 U/L (12-78); AST 12 U/L (15-37); Albumin 2.3 g/dL (3.4-5.0); Alkaline Phosphatase 53 U/L (46-116); BUN 17 mg/dL (7-18); Bilirubin, Total 0.5 mg/dL (0.2-1.0); CREATININE 0.74 mg/dL (0.55-1.02); Calcium 7.8 mg/dL (8.5-10.1); Chloride 107 mmol/L (98-107); Glucose 89 mg/dL (70-100); Potassium 3.7 mmol/L (3.5-5.1); Sodium 137 mmol/L (136-145); Total Protein 8.5 g/dL (6.4-8.2)
[2018-08-02 09:38] LABS: Diff Comment PLT Morph Reviewed; Platelet Count 72 x1000/uL (130-400); RBC Morphology Normal
== END 2018-08-02 09:21 ==
PROVIDERS: PCP Internal Medicine; Visit Provider Nurse Practitioner Adult Health
DX: C90.00 Multiple myeloma not having achieved remission (principal)
CPT/HCPCS: 36415; 80053; 85025

== ENCOUNTER 2018-08-09 09:04 | Outpatient (CLI) | payer MEDICARE, OTHER, SELFPAY ==
[2018-08-09 10:00] LABS: Abs Immature Grans 0.01 k/cumm (0.0-0.09); Absolute Basophil Count 0.01 k/cumm (0.0-0.2); Absolute Eosinophil Count 0.14 k/cumm (0.0-0.7); Absolute Lymphocyte Count 0.89 k/cumm (1.2-3.4); Absolute Monocyte Count 0.95 k/cumm (0.11-0.7); Absolute Neutrophil Count 2.77 k/cumm (1.2-6.7); Basophils % 0.2; Eosinophils % 2.9; HCT 34.6 % (36.0-46.0); HGB 10.6 g/dL (12.0-15.5); Immature Grans % 0.2; Lymphocytes % 18.7; Mean Corp. HGB Concentration 30.6 g/dL (32.0-36.0); Mean Corpuscular Hemoglobin 29.7 pg (27.0-33.0); Mean Corpuscular Volume 96.9 fL (80-95); Mean Platelet Volume 11.8 fL (8.0-11.0); Monocytes % 19.9; Neutrophils % 58.1; Platelet Count 110 x1000/uL (130-400); RBC 3.57 m/cumm (4.00-5.20); RBC Distribution Width 17.5 % (11.7-14.6); White Blood Cell Count 4.77 k/cumm (4.4-10.8)
[2018-08-09 10:06] LABS: ALT 16 U/L (12-78); AST 10 U/L (15-37); Albumin 2.3 g/dL (3.4-5.0); Alkaline Phosphatase 56 U/L (46-116); Anion Gap 3.4 mmol/L (3-11); BUN 12 mg/dL (7-18); Bilirubin, Total 0.6 mg/dL (0.2-1.0); CO2 26.6 mmol/L (21.0-32.0); CREATININE 0.69 mg/dL (0.55-1.02); Calcium 7.9 mg/dL (8.5-10.1); Chloride 105 mmol/L (98-107); Glucose 87 mg/dL (70-100); Potassium 3.7 mmol/L (3.5-5.1); Sodium 135 mmol/L (136-145); Total Protein 8.6 g/dL (6.4-8.2)
== END 2018-08-09 09:24 ==
PROVIDERS: PCP Internal Medicine; Visit Provider Internal Medicine
DX: C90.00 Multiple myeloma not having achieved remission (principal)
CPT/HCPCS: 36415; 80053; 85025

== ENCOUNTER 2018-08-30 08:08 | Outpatient (CLI) | payer MEDICARE, OTHER, SELFPAY ==
[2018-08-30 08:43] LABS: Abs Immature Grans 0.02 k/cumm (0.0-0.09); Absolute Basophil Count 0.01 k/cumm (0.0-0.2); Absolute Eosinophil Count 0.16 k/cumm (0.0-0.7); Absolute Lymphocyte Count 0.63 k/cumm (1.2-3.4); Absolute Monocyte Count 0.84 k/cumm (0.11-0.7); Absolute Neutrophil Count 2.59 k/cumm (1.2-6.7); Basophils % 0.2; Eosinophils % 3.8; HCT 34.4 % (36.0-46.0); HGB 10.7 g/dL (12.0-15.5); Immature Grans % 0.5; Lymphocytes % 14.8; Mean Corp. HGB Concentration 31.1 g/dL (32.0-36.0); Mean Corpuscular Hemoglobin 30.6 pg (27.0-33.0); Mean Corpuscular Volume 98.3 fL (80-95); Monocytes % 19.8; Neutrophils % 60.9; RBC Distribution Width 17.5 % (11.7-14.6); White Blood Cell Count 4.25 k/cumm (4.4-10.8)
[2018-08-30 08:44] LABS: ALT 14 U/L (12-78); AST 11 U/L (15-37); Albumin 2.4 g/dL (3.4-5.0); Alkaline Phosphatase 47 U/L (46-116); Anion Gap 4.4 mmol/L (3-11); BUN 12 mg/dL (7-18); Bilirubin, Total 0.6 mg/dL (0.2-1.0); CO2 24.6 mmol/L (21.0-32.0); CREATININE 0.71 mg/dL (0.55-1.02); Calcium 7.9 mg/dL (8.5-10.1); Chloride 106 mmol/L (98-107); Glucose 96 mg/dL (70-100); Potassium 3.6 mmol/L (3.5-5.1); Sodium 135 mmol/L (136-145); Total Protein 8.6 g/dL (6.4-8.2)
[2018-08-30 09:03] LABS: Diff Comment RBC Morph Reviewed; Platelet Count 65 x1000/uL (130-400); RBC Morphology Normal
== END 2018-08-30 08:28 ==
PROVIDERS: PCP Internal Medicine; Visit Provider Nurse Practitioner Adult Health
DX: C90.00 Multiple myeloma not having achieved remission (principal)
CPT/HCPCS: 36415; 80053; 85025

== ENCOUNTER 2018-09-06 08:01 | Outpatient (CLI) | payer MEDICARE, OTHER, SELFPAY ==
[2018-09-06 08:28] LABS: Absolute Basophil Count 0.01 k/cumm (0.0-0.2); Absolute Eosinophil Count 0.15 k/cumm (0.0-0.7); Absolute Lymphocyte Count 0.52 k/cumm (1.2-3.4); Absolute Monocyte Count 0.55 k/cumm (0.11-0.7); Basophils % 0.3; Eosinophils % 4.6; HCT 33.9 % (36.0-46.0); HGB 10.5 g/dL (12.0-15.5); Lymphocytes % 16.1; Mean Corpuscular Hemoglobin 30.5 pg (27.0-33.0); Mean Corpuscular Volume 98.5 fL (80-95); Mean Platelet Volume 11.7 fL (8.0-11.0); RBC 3.44 m/cumm (4.00-5.20); RBC Distribution Width 17.7 % (11.7-14.6); White Blood Cell Count 3.23 k/cumm (4.4-10.8)
[2018-09-06 08:43] LABS: ALT 16 U/L (12-78); AST 10 U/L (15-37); Albumin 2.3 g/dL (3.4-5.0); Alkaline Phosphatase 57 U/L (46-116); BUN 14 mg/dL (7-18); Bilirubin, Total 0.5 mg/dL (0.2-1.0); CREATININE 0.66 mg/dL (0.55-1.02); Chloride 106 mmol/L (98-107); Glucose 102 mg/dL (70-100); Potassium 3.4 mmol/L (3.5-5.1); Sodium 139 mmol/L (136-145); Total Protein 8.4 g/dL (6.4-8.2)
[2018-09-06 08:55] LABS: Diff Comment Diff Reviewed; Platelet Count 100 x1000/uL (130-400); RBC Morphology Normal
== END 2018-09-06 08:21 ==
PROVIDERS: Nurse Practitioner Adult Health; PCP Internal Medicine; Visit Provider Internal Medicine
DX: C90.00 Multiple myeloma not having achieved remission (principal)
CPT/HCPCS: 36415; 80053; 85025

== ENCOUNTER 2018-09-27 07:25 | Outpatient (CLI) | payer MEDICARE, OTHER, SELFPAY ==
[2018-09-27 07:44] LABS: Abs Immature Grans 0.02 k/cumm (0.0-0.09); Absolute Lymphocyte Count 0.55 k/cumm (1.2-3.4); Absolute Monocyte Count 0.72 k/cumm (0.11-0.7); Absolute Neutrophil Count 3.06 k/cumm (1.2-6.7); Eosinophils % 2.2; HCT 36.7 % (36.0-46.0); HGB 11.7 g/dL (12.0-15.5); Immature Grans % 0.4; Lymphocytes % 12.4; Mean Corp. HGB Concentration 31.9 g/dL (32.0-36.0); Mean Corpuscular Hemoglobin 30.9 pg (27.0-33.0); Mean Corpuscular Volume 96.8 fL (80-95); Mean Platelet Volume 12.5 fL (8.0-11.0); Monocytes % 16.2; Neutrophils % 68.8; RBC 3.79 m/cumm (4.00-5.20); RBC Distribution Width 16.9 % (11.7-14.6); White Blood Cell Count 4.45 k/cumm (4.4-10.8)
[2018-09-27 07:58] LABS: ALT 21 U/L (12-78); AST 11 U/L (15-37); Albumin 2.2 g/dL (3.4-5.0); Alkaline Phosphatase 57 U/L (46-116); Anion Gap 4.1 mmol/L (3-11); BUN 17 mg/dL (7-18); Bilirubin, Total 0.6 mg/dL (0.2-1.0); CO2 24.9 mmol/L (21.0-32.0); CREATININE 0.72 mg/dL (0.55-1.02); Calcium 7.8 mg/dL (8.5-10.1); Chloride 107 mmol/L (98-107); Glucose 89 mg/dL (70-100); Potassium 3.5 mmol/L (3.5-5.1); Sodium 136 mmol/L (136-145); Total Protein 9.2 g/dL (6.4-8.2)
[2018-09-27 08:16] LABS: Platelet Count 64 x1000/uL (130-400)
== END 2018-09-27 07:45 ==
PROVIDERS: Nurse Practitioner Adult Health; PCP Internal Medicine; Visit Provider Internal Medicine
DX: C90.00 Multiple myeloma not having achieved remission (principal)
CPT/HCPCS: 36415; 80053; 85025

== ENCOUNTER 2018-10-04 08:03 | Outpatient (CLI) | payer MEDICARE, OTHER, SELFPAY ==
[2018-10-04 08:21] LABS: Abs Immature Grans 0.02 k/cumm (0.0-0.09); Absolute Basophil Count 0.01 k/cumm (0.0-0.2); Absolute Eosinophil Count 0.13 k/cumm (0.0-0.7); Absolute Lymphocyte Count 0.59 k/cumm (1.2-3.4); Absolute Monocyte Count 0.68 k/cumm (0.11-0.7); Absolute Neutrophil Count 2.88 k/cumm (1.2-6.7); Basophils % 0.2; HCT 34.8 % (36.0-46.0); HGB 11.1 g/dL (12.0-15.5); Immature Grans % 0.5; Lymphocytes % 13.7; Mean Corp. HGB Concentration 31.9 g/dL (32.0-36.0); Mean Corpuscular Hemoglobin 30.9 pg (27.0-33.0); Mean Corpuscular Volume 96.9 fL (80-95); Mean Platelet Volume 11.5 fL (8.0-11.0); Monocytes % 15.8; Neutrophils % 66.8; RBC 3.59 m/cumm (4.00-5.20); RBC Distribution Width 16.7 % (11.7-14.6); White Blood Cell Count 4.31 k/cumm (4.4-10.8)
[2018-10-04 08:29] LABS: Platelet Count 103 x1000/uL (130-400)
[2018-10-04 08:34] LABS: ALT 12 U/L (12-78); Albumin 2.3 g/dL (3.4-5.0); Alkaline Phosphatase 66 U/L (46-116); Anion Gap 4.1 mmol/L (3-11); BUN 14 mg/dL (7-18); Bilirubin, Total 0.6 mg/dL (0.2-1.0); CO2 24.9 mmol/L (21.0-32.0); CREATININE 0.69 mg/dL (0.55-1.02); Calcium 8.4 mg/dL (8.5-10.1); Chloride 105 mmol/L (98-107); Glucose 99 mg/dL (70-100); Potassium 3.8 mmol/L (3.5-5.1); Sodium 134 mmol/L (136-145); Total Protein 9.2 g/dL (6.4-8.2)
[2018-10-04 08:44] LABS: AST 11 U/L (15-37)
== END 2018-10-04 08:23 ==
PROVIDERS: PCP Internal Medicine; Visit Provider Internal Medicine
DX: C90.00 Multiple myeloma not having achieved remission (principal)
CPT/HCPCS: 36415; 80053; 85025

== ENCOUNTER 2018-10-25 07:31 | Outpatient (CLI) | payer MEDICARE, OTHER, SELFPAY ==
[2018-10-25 08:03] LABS: Abs Immature Grans 0.02 k/cumm (0.0-0.09); Absolute Basophil Count 0.01 k/cumm (0.0-0.2); Absolute Eosinophil Count 0.09 k/cumm (0.0-0.7); Absolute Lymphocyte Count 0.88 k/cumm (1.2-3.4); Absolute Monocyte Count 0.72 k/cumm (0.11-0.7); Absolute Neutrophil Count 1.73 k/cumm (1.2-6.7); Basophils % 0.3; Eosinophils % 2.6; HCT 35.9 % (36.0-46.0); HGB 11.1 g/dL (12.0-15.5); Immature Grans % 0.6; Lymphocytes % 25.5; Mean Corp. HGB Concentration 30.9 g/dL (32.0-36.0); Mean Corpuscular Hemoglobin 30.4 pg (27.0-33.0); Mean Corpuscular Volume 98.4 fL (80-95); Mean Platelet Volume 12.5 fL (8.0-11.0); Monocytes % 20.9; Neutrophils % 50.1; RBC 3.65 m/cumm (4.00-5.20); RBC Distribution Width 16.2 % (11.7-14.6); White Blood Cell Count 3.45 k/cumm (4.4-10.8)
[2018-10-25 08:18] LABS: ALT 17 U/L (12-78); AST 5 U/L (15-37); Albumin 2.3 g/dL (3.4-5.0); Alkaline Phosphatase 48 U/L (46-116); BUN 12 mg/dL (7-18); Bilirubin, Total 0.5 mg/dL (0.2-1.0); CREATININE 0.66 mg/dL (0.55-1.02); Calcium 8.4 mg/dL (8.5-10.1); Chloride 107 mmol/L (98-107); Glucose 90 mg/dL (70-100); Potassium 3.8 mmol/L (3.5-5.1); Sodium 138 mmol/L (136-145)
[2018-10-25 08:20] LABS: Platelet Count 69 x1000/uL (130-400)
== END 2018-10-25 07:51 ==
PROVIDERS: PCP Internal Medicine; Visit Provider Nurse Practitioner Adult Health
DX: C90.00 Multiple myeloma not having achieved remission (principal)
CPT/HCPCS: 36415; 80053; 85025

== ENCOUNTER 2018-11-01 08:02 | Outpatient (CLI) | payer MEDICARE, OTHER, SELFPAY ==
[2018-11-01 08:29] LABS: Abs Immature Grans 0.01 k/cumm (0.0-0.09); Absolute Basophil Count 0.01 k/cumm (0.0-0.2); Absolute Eosinophil Count 0.14 k/cumm (0.0-0.7); Absolute Lymphocyte Count 0.79 k/cumm (1.2-3.4); Absolute Monocyte Count 0.71 k/cumm (0.11-0.7); Basophils % 0.3; Eosinophils % 4.3; HCT 33.5 % (36.0-46.0); HGB 10.7 g/dL (12.0-15.5); Immature Grans % 0.3; Lymphocytes % 24.2; Mean Corp. HGB Concentration 31.9 g/dL (32.0-36.0); Mean Corpuscular Volume 97.1 fL (80-95); Mean Platelet Volume 12.3 fL (8.0-11.0); Monocytes % 21.8; Neutrophils % 49.1; Platelet Count 101 x1000/uL (130-400); RBC 3.45 m/cumm (4.00-5.20); White Blood Cell Count 3.26 k/cumm (4.4-10.8)
[2018-11-01 08:43] LABS: ALT 13 U/L (12-78); AST 8 U/L (15-37); Albumin 2.3 g/dL (3.4-5.0); Alkaline Phosphatase 43 U/L (46-116); Anion Gap 5.9 mmol/L (3-11); BUN 8 mg/dL (7-18); Bilirubin, Total 0.5 mg/dL (0.2-1.0); CO2 23.1 mmol/L (21.0-32.0); CREATININE 0.65 mg/dL (0.55-1.02); Calcium 8.1 mg/dL (8.5-10.1); Chloride 107 mmol/L (98-107); Glucose 105 mg/dL (70-100); Potassium 3.2 mmol/L (3.5-5.1); Sodium 136 mmol/L (136-145); Total Protein 9.1 g/dL (6.4-8.2)
== END 2018-11-01 08:22 ==
PROVIDERS: PCP Internal Medicine; Visit Provider Nurse Practitioner Adult Health
DX: C90.00 Multiple myeloma not having achieved remission (principal)
CPT/HCPCS: 36415; 80053; 85025

== ENCOUNTER 2018-11-22 08:03 | Outpatient (CLI) | payer MEDICARE, OTHER, SELFPAY ==
[2018-11-22 08:27] LABS: Abs Immature Grans 0.01 k/cumm (0.0-0.09); Absolute Basophil Count 0.01 k/cumm (0.0-0.2); Absolute Eosinophil Count 0.15 k/cumm (0.0-0.7); Absolute Lymphocyte Count 0.57 k/cumm (1.2-3.4); Absolute Monocyte Count 0.66 k/cumm (0.11-0.7); Absolute Neutrophil Count 2.05 k/cumm (1.2-6.7); Basophils % 0.3; Eosinophils % 4.3; HCT 35.1 % (36.0-46.0); HGB 10.9 g/dL (12.0-15.5); Immature Grans % 0.3; Lymphocytes % 16.5; Mean Corp. HGB Concentration 31.1 g/dL (32.0-36.0); Mean Corpuscular Hemoglobin 30.9 pg (27.0-33.0); Mean Corpuscular Volume 99.4 fL (80-95); Monocytes % 19.1; Neutrophils % 59.5; RBC 3.53 m/cumm (4.00-5.20); RBC Distribution Width 15.9 % (11.7-14.6); White Blood Cell Count 3.45 k/cumm (4.4-10.8)
[2018-11-22 08:41] LABS: ALT 19 U/L (12-78); AST 11 U/L (15-37); Albumin 2.2 g/dL (3.4-5.0); Alkaline Phosphatase 53 U/L (46-116); Anion Gap 6.4 mmol/L (3-11); BUN 13 mg/dL (7-18); Bilirubin, Total 0.5 mg/dL (0.2-1.0); CO2 24.6 mmol/L (21.0-32.0); CREATININE 0.69 mg/dL (0.55-1.02); Calcium 7.6 mg/dL (8.5-10.1); Chloride 107 mmol/L (98-107); Glucose 90 mg/dL (70-100); Potassium 3.3 mmol/L (3.5-5.1); Sodium 138 mmol/L (136-145); Total Protein 8.9 g/dL (6.4-8.2)
[2018-11-22 08:55] LABS: Platelet Count 71 x1000/uL (130-400)
[2018-11-22 08:56] LABS: Diff Comment Diff Reviewed; RBC Morphology Normal
== END 2018-11-22 08:23 ==
PROVIDERS: PCP Internal Medicine; Visit Provider Nurse Practitioner Adult Health
DX: C90.00 Multiple myeloma not having achieved remission (principal)
CPT/HCPCS: 36415; 80053; 85025

== ENCOUNTER 2018-11-29 07:25 | Outpatient (CLI) | payer MEDICARE, OTHER, SELFPAY ==
[2018-11-29 07:54] LABS: Abs Immature Grans 0.01 k/cumm (0.0-0.09); Absolute Eosinophil Count 0.18 k/cumm (0.0-0.7); Absolute Lymphocyte Count 0.65 k/cumm (1.2-3.4); Absolute Monocyte Count 0.59 k/cumm (0.11-0.7); Eosinophils % 4.5; HCT 34.9 % (36.0-46.0); Immature Grans % 0.3; Lymphocytes % 16.3; Mean Corp. HGB Concentration 31.5 g/dL (32.0-36.0); Mean Corpuscular Hemoglobin 31.3 pg (27.0-33.0); Mean Corpuscular Volume 99.1 fL (80-95); Mean Platelet Volume 12.2 fL (8.0-11.0); Monocytes % 14.8; Neutrophils % 64.1; Platelet Count 106 x1000/uL (130-400); RBC 3.52 m/cumm (4.00-5.20); RBC Distribution Width 16.3 % (11.7-14.6)
[2018-11-29 07:55] LABS: Absolute Neutrophil Count 2.56 k/cumm (1.2-6.7)
[2018-11-29 08:12] LABS: ALT 22 U/L (14-59); AST 12 U/L (15-37); Albumin 2.2 g/dL (3.4-5.0); Alkaline Phosphatase 51 U/L (46-116); Anion Gap 7.4 mmol/L (3-11); BUN 9 mg/dL (7-18); Bilirubin, Total 0.6 mg/dL (0.2-1.0); CO2 23.6 mmol/L (21.0-32.0); CREATININE 0.79 mg/dL (0.55-1.02); Calcium 7.7 mg/dL (8.5-10.1); Chloride 108 mmol/L (98-107); Glucose 104 mg/dL (70-100); Sodium 139 mmol/L (136-145); Total Protein 9.1 g/dL (6.4-8.2)
== END 2018-11-29 07:45 ==
PROVIDERS: PCP Internal Medicine; Visit Provider Nurse Practitioner Adult Health
DX: C90.00 Multiple myeloma not having achieved remission (principal)
CPT/HCPCS: 36415; 80053; 85025

== ENCOUNTER 2018-12-20 07:51 | Outpatient (CLI) | payer MEDICARE, OTHER, SELFPAY ==
[2018-12-20 08:19] LABS: Abs Immature Grans 0.01 k/cumm (0.0-0.09); Absolute Basophil Count 0.01 k/cumm (0.0-0.2); Absolute Eosinophil Count 0.33 k/cumm (0.0-0.7); Absolute Lymphocyte Count 0.74 k/cumm (1.2-3.4); Absolute Monocyte Count 0.88 k/cumm (0.11-0.7); Absolute Neutrophil Count 3.71 k/cumm (1.2-6.7); Basophils % 0.2; Eosinophils % 5.8; HCT 35.9 % (36.0-46.0); HGB 11.3 g/dL (12.0-15.5); Immature Grans % 0.2; Mean Corp. HGB Concentration 31.5 g/dL (32.0-36.0); Mean Corpuscular Hemoglobin 30.6 pg (27.0-33.0); Mean Corpuscular Volume 97.3 fL (80-95); Mean Platelet Volume 12.2 fL (8.0-11.0); Monocytes % 15.5; Neutrophils % 65.3; RBC 3.69 m/cumm (4.00-5.20); RBC Distribution Width 16.3 % (11.7-14.6); White Blood Cell Count 5.68 k/cumm (4.4-10.8)
[2018-12-20 08:37] LABS: ALT 13 U/L (14-59); AST 10 U/L (15-37); Albumin 2.3 g/dL (3.4-5.0); Alkaline Phosphatase 50 U/L (46-116); Anion Gap 6.9 mmol/L (3-11); BUN 16 mg/dL (7-18); Bilirubin, Total 0.5 mg/dL (0.2-1.0); CO2 22.1 mmol/L (21.0-32.0); CREATININE 0.84 mg/dL (0.55-1.02); Calcium 8.1 mg/dL (8.5-10.1); Chloride 108 mmol/L (98-107); Glucose 118 mg/dL (70-100); Potassium 3.2 mmol/L (3.5-5.1); Sodium 137 mmol/L (136-145); Total Protein 9.1 g/dL (6.4-8.2)
[2018-12-20 08:41] LABS: Platelet Count 79 x1000/uL (130-400)
== END 2018-12-20 08:11 ==
PROVIDERS: PCP Internal Medicine; Visit Provider Internal Medicine
DX: C90.00 Multiple myeloma not having achieved remission (principal)
CPT/HCPCS: 36415; 80053; 85025

== ENCOUNTER 2018-12-27 08:09 | Outpatient (CLI) | payer MEDICARE, OTHER, SELFPAY ==
[2018-12-27 08:35] LABS: Abs Immature Grans 0.02 k/cumm (0.0-0.09); Absolute Basophil Count 0.01 k/cumm (0.0-0.2); Absolute Eosinophil Count 0.43 k/cumm (0.0-0.7); Absolute Lymphocyte Count 0.68 k/cumm (1.2-3.4); Absolute Monocyte Count 1.06 k/cumm (0.11-0.7); Absolute Neutrophil Count 3.34 k/cumm (1.2-6.7); Basophils % 0.2; Eosinophils % 7.8; HCT 32.9 % (36.0-46.0); HGB 10.5 g/dL (12.0-15.5); Immature Grans % 0.4; Lymphocytes % 12.3; Mean Corp. HGB Concentration 31.9 g/dL (32.0-36.0); Mean Corpuscular Hemoglobin 30.9 pg (27.0-33.0); Mean Corpuscular Volume 96.8 fL (80-95); Mean Platelet Volume 12.3 fL (8.0-11.0); Monocytes % 19.1; Neutrophils % 60.2; Platelet Count 105 x1000/uL (130-400); RBC Distribution Width 16.8 % (11.7-14.6); White Blood Cell Count 5.54 k/cumm (4.4-10.8)
[2018-12-27 08:47] LABS: ALT 11 U/L (14-59); AST 13 U/L (15-37); Albumin 2.2 g/dL (3.4-5.0); Alkaline Phosphatase 47 U/L (46-116); Anion Gap 7.7 mmol/L (3-11); BUN 15 mg/dL (7-18); Bilirubin, Total 0.6 mg/dL (0.2-1.0); CO2 21.3 mmol/L (21.0-32.0); CREATININE 0.85 mg/dL (0.55-1.02); Calcium 7.9 mg/dL (8.5-10.1); Chloride 107 mmol/L (98-107); Glucose 117 mg/dL (70-100); Potassium 3.1 mmol/L (3.5-5.1); Sodium 136 mmol/L (136-145); Total Protein 8.7 g/dL (6.4-8.2)
== END 2018-12-27 08:29 ==
PROVIDERS: PCP Internal Medicine; Visit Provider Nurse Practitioner Adult Health
DX: C90.00 Multiple myeloma not having achieved remission (principal)
CPT/HCPCS: 36415; 80053; 85025

== ENCOUNTER 2020-12-16 02:56 | Outpatient (CLI) | payer MEDICARE, OTHER, SELFPAY ==
[2020-12-16 10:45] LABS: HCT 30.8 % (36.0-46.0); HGB 10.1 g/dL (11.2-15.7); Lymphocytes % 22.1; MCH 30.1 pg (27.0-33.0); MCHC 32.8 % (32.0-36.0); MCV 91.9 fL (80-95); MPV 11.1 fL (8.0-11.0); Neutrophils % 54.9; Platelet Count 107 10^3/uL (130-400); RBC 3.35 10^6/uL (3.93-5.22); RDW 14.6 % (11.7-14.6); RDW-SD 48.9 fL; WBC 4.17 10^3/uL (4.4-10.8)
[2020-12-16 10:46] LABS: Abs Immature Grans 0.02 10^3/uL (0.0-0.06); Absolute Basophil Count 0.01 10^3/uL (0.0-0.2); Absolute Eosinophil Count 0.18 10^3/uL (0.0-0.7); Absolute Lymphocyte Count 0.92 10^3/uL (1.2-3.4); Absolute Monocyte Count 0.75 10^3/uL (0.1-0.8); Absolute Neutrophil Count 2.29 10^3/uL (1.2-6.7); Basophils % 0.2; Eosinophils % 4.3; Immature Grans % 0.5; Nucleated RBC 0 %
[2020-12-16 11:01] LABS: ALT 11 U/L (14-59); AST 13 U/L (15-37); Albumin 2.3 g/dL (3.4-5.0); Alkaline Phosphatase 39 U/L (46-116); Anion Gap 5.5 mmol/L (3-11); BUN 23 mg/dL (7-18); Bilirubin, Total 0.3 mg/dL (0.2-1.0); CO2 21.5 mmol/L (21.0-32.0); CREATININE 1.6 mg/dL (0.55-1.02); Calcium 8.6 mg/dL (8.5-10.1); Chloride 105 mmol/L (98-107); Estimated GFR 32.05 (mL/min/1.73m2); Glucose 102 mg/dL (74-106); Potassium 4.4 mmol/L (3.5-5.1); Sodium 132 mmol/L (136-145); Total Protein 11.2 g/dL (6.4-8.2)
[2020-12-17 10:49] LABS: IgA <13 mg/dL (85-499); IgG 6617 mg/dL (610-1,616); IgM <12 mg/dL (35-242); Kappa Free Light Chain <0.19 mg/dL (0.33-1.94); Lambda Free Light Chain 133.35 mg/dL (0.57-2.63)
[2020-12-17 12:54] LABS: Albumin 31.2 % (55.8-66.1); Comment (See Note); Monoclonal Spike 48.2 % (None Seen); Total Protein 10.7 g/dL (6.3-8.2)
[2021-02-16 12:48] LABS: Immunotyping, Serum (See Note)
== END 2020-12-16 02:57 | disposition home or self-care (01) ==
LOC: LBO 02:56
PROVIDERS: PCP Internal Medicine; Visit Provider Internal Medicine
DX: C90.00 Multiple myeloma not having achieved remission (principal); D64.9 Anemia, unspecified
CPT/HCPCS: 36415; 80053; 82784; 83883; 84165; 85025; 86320

== ENCOUNTER 2020-12-24 14:36 | Outpatient (CLI) | payer MEDICARE, OTHER, SELFPAY ==
[2020-12-24 13:03] LABS: Abs Immature Grans 0.03 10^3/uL (0.0-0.06); Absolute Eosinophil Count 0.08 10^3/uL (0.0-0.7); Absolute Lymphocyte Count 0.54 10^3/uL (1.2-3.4); Absolute Monocyte Count 0.19 10^3/uL (0.1-0.8); Absolute Neutrophil Count 3.62 10^3/uL (1.2-6.7); Eosinophils % 1.8; HCT 29.4 % (36.0-46.0); HGB 9.6 g/dL (11.2-15.7); Immature Grans % 0.7; Lymphocytes % 12.1; MCH 29.9 pg (27.0-33.0); MCHC 32.7 % (32.0-36.0); MCV 91.6 fL (80-95); MPV 10.8 fL (8.0-11.0); Monocytes % 4.3; Neutrophils % 81.1; Nucleated RBC 0 %; Platelet Count 125 10^3/uL (130-400); RBC 3.21 10^6/uL (3.93-5.22); RDW-SD 50.4 fL; WBC 4.46 10^3/uL (4.4-10.8)
[2020-12-24 13:16] LABS: ALT 11 U/L (14-59); AST 13 U/L (15-37); Albumin 2.4 g/dL (3.4-5.0); Alkaline Phosphatase 40 U/L (46-116); Anion Gap 7.1 mmol/L (3-11); BUN 22 mg/dL (7-18); Bilirubin, Total 0.3 mg/dL (0.2-1.0); CO2 21.9 mmol/L (21.0-32.0); CREATININE 1.6 mg/dL (0.55-1.02); Calcium 8.7 mg/dL (8.5-10.1); Chloride 103 mmol/L (98-107); Estimated GFR 32.05 (mL/min/1.73m2); Glucose 120 mg/dL (74-106); Potassium 4.2 mmol/L (3.5-5.1); Sodium 132 mmol/L (136-145); Total Protein 10.8 g/dL (6.4-8.2)
== END 2020-12-24 14:37 | disposition home or self-care (01) ==
LOC: LBO 14:37
PROVIDERS: PCP Internal Medicine; Visit Provider Internal Medicine
DX: C90.00 Multiple myeloma not having achieved remission (principal); D64.9 Anemia, unspecified
CPT/HCPCS: 36415; 80053; 85025

== ENCOUNTER 2021-01-07 02:23 | Outpatient (CLI) | payer MEDICARE, OTHER, SELFPAY ==
[2021-01-07 10:16] LABS: Abs Immature Grans 0.04 10^3/uL (0.0-0.06); Absolute Basophil Count 0.01 10^3/uL (0.0-0.2); Absolute Eosinophil Count 0.12 10^3/uL (0.0-0.7); Absolute Lymphocyte Count 0.81 10^3/uL (1.2-3.4); Absolute Monocyte Count 0.26 10^3/uL (0.1-0.8); Absolute Neutrophil Count 3.32 10^3/uL (1.2-6.7); Basophils % 0.2; Eosinophils % 2.6; HCT 31.6 % (36.0-46.0); HGB 10.3 g/dL (11.2-15.7); Immature Grans % 0.9; Lymphocytes % 17.8; MCH 30.1 pg (27.0-33.0); MCHC 32.6 % (32.0-36.0); MCV 92.4 fL (80-95); Monocytes % 5.7; Neutrophils % 72.8; Nucleated RBC 0 %; Platelet Count 123 10^3/uL (130-400); RBC 3.42 10^6/uL (3.93-5.22); RDW 15.3 % (11.7-14.6); RDW-SD 51.8 fL; WBC 4.56 10^3/uL (4.4-10.8)
[2021-01-07 10:29] LABS: ALT 14 U/L (14-59); AST 13 U/L (15-37); Albumin 2.4 g/dL (3.4-5.0); Alkaline Phosphatase 44 U/L (46-116); Anion Gap 5.9 mmol/L (3-11); BUN 21 mg/dL (7-18); Bilirubin, Total 0.4 mg/dL (0.2-1.0); CO2 22.1 mmol/L (21.0-32.0); CREATININE 1.5 mg/dL (0.55-1.02); Calcium 9.4 mg/dL (8.5-10.1); Chloride 104 mmol/L (98-107); Estimated GFR 34.53 (mL/min/1.73m2); Glucose 118 mg/dL (74-106); Potassium 4.2 mmol/L (3.5-5.1); Sodium 132 mmol/L (136-145)
[2021-01-10 11:18] LABS: IgA <13 mg/dL (85-499); IgG 6342 mg/dL (610-1,616); IgM <12 mg/dL (35-242); Kappa Free Light Chain <0.19 mg/dL (0.33-1.94); Lambda Free Light Chain 174.28 mg/dL (0.57-2.63)
[2021-01-10 12:58] LABS: Albumin 33.7 % (55.8-66.1); Comment (See Note); Monoclonal Spike 48.3 % (None Seen); Total Protein 10.5 g/dL (6.3-8.2)
== END 2021-01-07 02:24 | disposition home or self-care (01) ==
LOC: LBO 02:23
PROVIDERS: PCP Internal Medicine; Visit Provider Internal Medicine
DX: C90.00 Multiple myeloma not having achieved remission (principal); D64.9 Anemia, unspecified
CPT/HCPCS: 36415; 80053; 82784; 83883; 84165; 85025

== ENCOUNTER 2021-01-14 02:26 | Outpatient (CLI) | payer MEDICARE, OTHER, SELFPAY ==
[2021-01-14 13:06] LABS: Abs Immature Grans 0.03 10^3/uL (0.0-0.06); Absolute Basophil Count 0.01 10^3/uL (0.0-0.2); Absolute Eosinophil Count 0.05 10^3/uL (0.0-0.7); Absolute Lymphocyte Count 0.92 10^3/uL (1.2-3.4); Absolute Monocyte Count 0.22 10^3/uL (0.1-0.8); Basophils % 0.2; Eosinophils % 1.1; HCT 29.4 % (36.0-46.0); HGB 9.7 g/dL (11.2-15.7); Immature Grans % 0.7; Lymphocytes % 20.8; MCH 29.9 pg (27.0-33.0); MCV 90.7 fL (80-95); Neutrophils % 72.2; Nucleated RBC 0 %; Platelet Count 96 10^3/uL (130-400); RBC 3.24 10^6/uL (3.93-5.22); RDW 15.6 % (11.7-14.6); RDW-SD 51.9 fL; WBC 4.43 10^3/uL (4.4-10.8)
[2021-01-14 13:19] LABS: ALT 15 U/L (14-59); AST 12 U/L (15-37); Albumin 2.3 g/dL (3.4-5.0); Alkaline Phosphatase 43 U/L (46-116); Anion Gap 6.7 mmol/L (3-11); BUN 23 mg/dL (7-18); Bilirubin, Total 0.4 mg/dL (0.2-1.0); CO2 21.3 mmol/L (21.0-32.0); CREATININE 1.5 mg/dL (0.55-1.02); Chloride 105 mmol/L (98-107); Estimated GFR 34.53 (mL/min/1.73m2); Glucose 115 mg/dL (74-106); LDH 168 U/L (81-234); Potassium 4.2 mmol/L (3.5-5.1); Sodium 133 mmol/L (136-145); Total Protein 10.3 g/dL (6.4-8.2)
[2021-01-17 11:09] LABS: IgA <13 mg/dL (85-499); IgG 6461 mg/dL (610-1,616); IgM <12 mg/dL (35-242); Kappa Free Light Chain <0.19 mg/dL (0.33-1.94); Lambda Free Light Chain 161.67 mg/dL (0.57-2.63)
[2021-01-17 13:44] LABS: Albumin 32.6 % (55.8-66.1); Comment (See Note); Monoclonal Spike 49.1 % (None Seen)
== END 2021-01-14 02:27 | disposition home or self-care (01) ==
LOC: LBO 02:26
PROVIDERS: PCP Internal Medicine; Visit Provider Internal Medicine
DX: C90.00 Multiple myeloma not having achieved remission (principal); D64.9 Anemia, unspecified; I50.812 Chronic right heart failure
CPT/HCPCS: 36415; 80053; 82784; 83615; 83883; 84165; 85025

== ENCOUNTER 2021-01-21 11:57 | Outpatient (CLI) | payer MEDICARE, OTHER, SELFPAY ==
[2021-01-21 11:28] LABS: Abs Immature Grans 0.01 10^3/uL (0.0-0.06); Absolute Basophil Count 0.01 10^3/uL (0.0-0.2); Absolute Eosinophil Count 0.08 10^3/uL (0.0-0.7); Absolute Lymphocyte Count 1.06 10^3/uL (1.2-3.4); Absolute Monocyte Count 0.23 10^3/uL (0.1-0.8); Absolute Neutrophil Count 3.19 10^3/uL (1.2-6.7); Basophils % 0.2; Eosinophils % 1.7; HCT 29.5 % (36.0-46.0); HGB 9.7 g/dL (11.2-15.7); Immature Grans % 0.2; Lymphocytes % 23.1; MCH 29.8 pg (27.0-33.0); MCHC 32.9 % (32.0-36.0); MCV 90.5 fL (80-95); MPV 11.9 fL (8.0-11.0); Neutrophils % 69.8; Nucleated RBC 0 %; RBC 3.26 10^6/uL (3.93-5.22); RDW 15.6 % (11.7-14.6); RDW-SD 51.8 fL; WBC 4.58 10^3/uL (4.4-10.8)
[2021-01-21 11:46] LABS: Platelet Count 83 10^3/uL (130-400); RBC Morphology Normal
[2021-01-21 12:04] LABS: ALT 15 U/L (14-59); AST 14 U/L (15-37); Albumin 2.4 g/dL (3.4-5.0); Alkaline Phosphatase 45 U/L (46-116); BUN 18 mg/dL (7-18); Bilirubin, Total 0.5 mg/dL (0.2-1.0); CREATININE 1.5 mg/dL (0.55-1.02); Calcium 8.9 mg/dL (8.5-10.1); Chloride 105 mmol/L (98-107); Estimated GFR 34.53 (mL/min/1.73m2); Glucose 96 mg/dL (74-106); LDH 192 U/L (81-234); Potassium 4.4 mmol/L (3.5-5.1); Sodium 134 mmol/L (136-145); Total Protein 10.2 g/dL (6.4-8.2)
[2021-01-24 14:32] LABS: Albumin 34.7 % (55.8-66.1); Comment (See Note); Monoclonal Spike 42.7 % (None Seen); Total Protein 10.1 g/dL (6.3-8.2)
[2021-01-24 15:05] LABS: IgA <13 mg/dL (85-499); IgG 6055 mg/dL (610-1,616); IgM <12 mg/dL (35-242); Kappa Free Light Chain <0.19 mg/dL (0.33-1.94); Lambda Free Light Chain 163.13 mg/dL (0.57-2.63)
== END 2021-01-21 11:58 | disposition home or self-care (01) ==
LOC: LBO 11:58
PROVIDERS: PCP Internal Medicine; Visit Provider Internal Medicine
DX: C90.00 Multiple myeloma not having achieved remission (principal); I50.812 Chronic right heart failure
CPT/HCPCS: 36415; 80053; 82784; 83615; 83883; 84165; 85025

== ENCOUNTER 2021-01-28 03:25 | Outpatient (CLI) | payer MEDICARE, OTHER, SELFPAY ==
[2021-01-28 11:41] LABS: Abs Immature Grans 0.03 10^3/uL (0.0-0.06); Absolute Basophil Count 0.01 10^3/uL (0.0-0.2); Absolute Eosinophil Count 0.05 10^3/uL (0.0-0.7); Absolute Lymphocyte Count 0.99 10^3/uL (1.2-3.4); Absolute Monocyte Count 0.24 10^3/uL (0.1-0.8); Basophils % 0.3; Eosinophils % 1.4; HCT 28.7 % (36.0-46.0); HGB 9.3 g/dL (11.2-15.7); Immature Grans % 0.9; Lymphocytes % 28.1; MCH 30.1 pg (27.0-33.0); MCHC 32.4 % (32.0-36.0); MCV 92.9 fL (80-95); MPV 10.9 fL (8.0-11.0); Monocytes % 6.8; Neutrophils % 62.5; Nucleated RBC 0 %; RBC 3.09 10^6/uL (3.93-5.22); RDW 16.2 % (11.7-14.6); RDW-SD 54.8 fL; WBC 3.52 10^3/uL (4.4-10.8)
[2021-01-28 11:54] LABS: ALT 13 U/L (14-59); AST 13 U/L (15-37); Albumin 2.3 g/dL (3.4-5.0); Alkaline Phosphatase 45 U/L (46-116); Anion Gap 6.8 mmol/L (3-11); BUN 22 mg/dL (7-18); Bilirubin, Total 0.4 mg/dL (0.2-1.0); CO2 20.2 mmol/L (21.0-32.0); CREATININE 1.6 mg/dL (0.55-1.02); Calcium 8.9 mg/dL (8.5-10.1); Chloride 106 mmol/L (98-107); Estimated GFR 32.05 (mL/min/1.73m2); Glucose 116 mg/dL (74-106); Potassium 4.5 mmol/L (3.5-5.1); Sodium 133 mmol/L (136-145); Total Protein 10.2 g/dL (6.4-8.2)
[2021-01-28 11:55] LABS: Platelet Count 78 10^3/uL (130-400)
[2021-01-28 12:07] LABS: LDH 206 U/L (81-234)
[2021-01-31 11:20] LABS: IgA <13 mg/dL (85-499); IgG 5923 mg/dL (610-1,616); IgM <12 mg/dL (35-242); Kappa Free Light Chain <0.19 mg/dL (0.33-1.94); Lambda Free Light Chain 164.88 mg/dL (0.57-2.63)
[2021-01-31 12:05] LABS: Albumin 33.9 % (55.8-66.1); Comment (See Note); Monoclonal Spike 44.5 % (None Seen); Total Protein 9.7 g/dL (6.3-8.2)
== END 2021-01-28 03:26 | disposition home or self-care (01) ==
LOC: LBO 03:25
PROVIDERS: PCP Internal Medicine; Visit Provider Internal Medicine
DX: C90.00 Multiple myeloma not having achieved remission (principal); I50.812 Chronic right heart failure
CPT/HCPCS: 36415; 80053; 82784; 83615; 83883; 84165; 85025